=== PATIENT | female | born 1995 | race Caucasian/White ===

== ENCOUNTER 2016-10-08 11:15 | Outpatient (CLI) | payer OTHER ==
[2016-10-11 11:54] LABS: CANDIDA SPECIES Negative (Negative); GARDNERELLA VAGINALIS Positive (Negative)
[2016-10-11 21:41] LABS: C.TRACHOMATIS BY TMA Negative (Negative); N.GONORRHOEAE BY TMA Negative (Negative)
== END 2016-10-08 11:16 | disposition home or self-care (01) ==
LOC: LAB.WCP 11:15
PROVIDERS: ATTEND Family Medicine
DX: N93.9 Abnormal uterine and vaginal bleeding, unspecified (principal)
CPT/HCPCS: 87480; 87491; 87510; 87591; 87660

== ENCOUNTER 2018-09-17 14:04 | Emergency (ER) | payer SELFPAY ==
[2018-09-17 14:13] VITALS: BP 131/75
--- NOTE | 2018-09-17 14:24 | ED Physician Documentation ---
PD HPI OPHTHO - Stated complaint Stated Complaint: LT EYE SWELLING - Chief complaint Chief Complaint: Heent - History obtained from History obtained from: Patient - History of Present Illness Timing - onset: Other (She thinks may be some got stuck in her eye at work 2 days ago. She works as a dental office assisting in dental surgeries. She has had progressive pain and swelling especially of the upper lid. There is no visual deficit and she does not wear contact lenses.) Review of Systems Constitutional: denies: Fever, Chills Cardiac: denies: Chest pain / pressure, Palpitations Respiratory: denies: Dyspnea, Cough PD PAST MEDICAL HISTORY - Past Surgical History Past Surgical History: No - Present Medications Home Medications: Ambulatory Orders Medication Instructions Recorded Confirmed FLUoxetine [PROzac] 10 mg PO DAILY 09/17/18 09/17/18 Polymyxin B/Trimeth Ophth Drop 1 drops EACHEYE Q3H 7 Days #1 09/17/18 [Polytrim Ophth Drops] bottle - Allergies Allergies/Adverse Reactions: Allergies Allergy/AdvReac Type Severity Reaction Status Date / Time No Known Drug Allergies Allergy Verified 09/17/18 14:12 - Social History Does the pt smoke?: No Smoking Status: Never smoker Does the pt drink ETOH?: No Does the pt have substance abuse?: Yes - Immunizations Immunizations are current?: Yes - POLST Patient has POLST: No PD ED PE NORMAL - Vitals Vital signs reviewed: Yes - General General: Alert and oriented X 3, No acute distress - HEENT HEENT: PERRL, EOMI, Other (Modest swelling of the upper eyelid with redness, no flourescen uptake.) - Neck Neck: Supple, no meningeal sign, No bony TTP - Neuro Neuro: Alert and oriented X 3, Normal speech Results - Vitals Vitals: Vital Signs - 24 hr 09/17/18 14:11 Temperature 36.2 C L Heart Rate 56 L Respiratory 18 Rate Blood Pressure 131/75 H O2 Saturation 98 Oxygen O2 Source Room air Departure - Departure Disposition: Home, Self Care Clinical Impression: Blepharitis of eyelid of left eye Qualifiers: Blepharitis type: squamous Eyelid: upper Qualified Code(s): H01.024 - Squamous blepharitis left upper eyelid Condition: Good Record reviewed to determine appropriate education?: Yes Instructions: ED Inflammation Eyelid Follow-Up: Yao Bustillo MD [Provider Admit Priv/Credential] - Within 3 Days Prescriptions: Polymyxin B/Trimeth Ophth Drop [Polytrim Ophth Drops] 1 drops EACHEYE Q3H 7 Days #1 bottle
== END 2018-09-17 14:55 | disposition home or self-care (01) ==
LOC: ED 14:04
DX: H01.024 Squamous blepharitis left upper eyelid (principal)
CPT/HCPCS: 99282; 99283

== ENCOUNTER 2019-04-12 12:21 | Outpatient (CLI) | payer MEDICAID | END 2019-04-12 12:22 | disposition critical access hospital (66) | LOC: EMS 12:21 | PROVIDERS: ATTEND Surgery | DX: R45.851 Suicidal ideations (principal) | CPT/HCPCS: A0425; A0429; A0999 ==

== ENCOUNTER 2019-04-12 12:43 | Emergency (ER) | payer MEDICAID ==
--- NOTE | 2019-04-12 12:55 | ED Physician Documentation ---
PD HPI MHE - Stated complaint Stated Complaint: MHE - History obtained from History obtained from: Patient, EMS - History of Present Illness Primary symptom: Suicidal ideation (24-year-old woman brought in by ambulance for mental health evaluation. She just moved home with her mother and there was some sort of outburst today and she was fighting with her mother and she tried to commit suicide by wrapping rope around her neck. She admits to active suicidal ideation and does not particularly want to help or want to be here. She denies alcohol or substance use. She does have a history of depression, last suicide attempt was about a year ago and last hospitalization she says was At age 17. She is not on any antidepressants.) Review of Systems Ten Systems: 10 systems reviewed and negative Constitutional: denies: Fever, Chills Cardiac: denies: Chest pain / pressure, Palpitations Respiratory: denies: Dyspnea, Cough GI: denies: Abdominal Pain, Nausea, Vomiting PD PAST MEDICAL HISTORY - Past Medical History Past Medical History: Yes Psych: Depression - Past Surgical History Past Surgical History: No - Present Medications Home Medications: Ambulatory Orders Medication Instructions Recorded Confirmed FLUoxetine [PROzac] 10 mg PO DAILY 09/17/18 09/17/18 Polymyxin B/Trimeth Ophth Drop 1 drops EACHEYE Q3H 7 Days #1 09/17/18 [Polytrim Ophth Drops] bottle - Allergies Allergies/Adverse Reactions: Allergies Allergy/AdvReac Type Severity Reaction Status Date / Time No Known Drug Allergies Allergy Verified 09/17/18 14:12 - Social History Does the pt smoke?: No Smoking Status: Never smoker Does the pt drink ETOH?: No Does the pt have substance abuse?: Yes - Family History Family history: reports: Non contributory - Immunizations Immunizations are current?: Yes - POLST Patient has POLST: No PD ED PE NORMAL - Vitals Vital signs reviewed: Yes - General General: Alert and oriented X 3, Other (She is generally uncooperative, preferring to keep her eyes closed and staying under the blankets; Crying a lot.) - HEENT HEENT: PERRL, EOMI - Neck Neck: Supple, no meningeal sign, No bony TTP - Cardiac Cardiac: RRR, No murmur - Respiratory Respiratory: No respiratory distress, Clear bilaterally - Abdomen Abdomen: Soft, Non tender - Back Back: No CVA TTP, No spinal TTP - Derm Derm: Normal color, Warm and dry - Extremities Extremities: No edema, No calf tenderness / cord - Neuro Neuro: Alert and oriented X 3, Normal speech - Psych Psych: Other (Tearful uncooperative and depressed) Results - Vitals Vitals: Vital Signs - 24 hr 04/12/19 13:03 Temperature 37.2 C Heart Rate 91 Respiratory 17 Rate Blood Pressure 109/79 O2 Saturation 97 Oxygen O2 Source Room air - Labs Labs: Laboratory Tests 04/12/19 04/12/19 04/12/19 13:02 13:02 13:02 WBC 8.1 RBC 4.56 Hgb 14.7 Hct 43.3 MCV 95.0 MCH 32.2 H MCHC 33.9 RDW 13.1 Plt Count 253 MPV 9.2 Neut # (Auto) 5.3 Lymph # (Auto) 1.9 Henry # (Auto) 0.8 Eos # (Auto) 0.1 Baso # (Auto) 0.1 Absolute Nucleated RBC 0.00 Nucleated RBC % 0.0 Sodium 140 Potassium 3.7 Chloride 103 Carbon Dioxide 21 Anion Gap 16.0 H BUN 12 Creatinine 0.9 Estimated GFR (MDRD) 78 L Glucose 86 Calcium 9.6 Total Bilirubin 0.6 AST 19 ALT 11 Alkaline Phosphatase 52 Total Protein 7.7 Albumin 4.7 Globulin 3.0 Albumin/Globulin Ratio 1.6 Lipase 22 TSH 1.97 Urine Color Urine Clarity Urine pH Ur Specific [place] Urine Protein Urine Glucose (UA) Urine Ketones Urine Occult Blood Urine Nitrite Urine Bilirubin Urine Urobilinogen Ur Leukocyte Esterase Urine RBC Urine WBC Ur Squamous Epith Cells Urine Bacteria Urine Casts Ur Microscopic Review Urine Culture Comments Urine HCG, Qual Salicylates < 6.0 Urine Opiates Screen Ur Oxycodone Screen Urine Methadone Screen Ur Propoxyphene Screen Acetaminophen < 10 L Ur Barbiturates Screen Ur Tricyclics Screen Ur Phencyclidine Scrn Ur Amphetamine Screen U Methamphetamines Scrn U Benzodiazepines Scrn Urine Cocaine Screen U Cannabinoids Screen Ethyl Alcohol < 5.0 04/12/19 04/12/19 13:07 13:07 WBC RBC Hgb Hct MCV MCH MCHC RDW Plt Count MPV Neut # (Auto) Lymph # (Auto) Henry # (Auto) Eos # (Auto) Baso # (Auto) Absolute Nucleated RBC Nucleated RBC % Sodium Potassium Chloride Carbon Dioxide Anion Gap BUN Creatinine Estimated GFR (MDRD) Glucose Calcium Total Bilirubin AST ALT Alkaline Phosphatase Total Protein Albumin Globulin Albumin/Globulin Ratio Lipase TSH Urine Color YELLOW Urine Clarity SL Urine pH 6.0 Ur Specific [place] >=1.030 H Urine Protein 100 H Urine Glucose (UA) NEGATIVE Urine Ketones TRACE Urine Occult Blood LARGE H Urine Nitrite NEGATIVE Urine Bilirubin NEGATIVE Urine Urobilinogen 0.2 (NORMAL) Ur Leukocyte Esterase NEGATIVE Urine RBC 11-25 H Urine WBC 0-3 Ur Squamous Epith Cells RARE Squamous Urine Bacteria Few Urine Casts 3-5 Hyaline Casts Ur Microscopic Review INDICATED Urine Culture Comments NOT INDICATED Urine HCG, Qual NEGATIVE Salicylates Urine Opiates Screen NEGATIVE Ur Oxycodone Screen NEGATIVE Urine Methadone Screen NEGATIVE Ur Propoxyphene Screen NEGATIVE Acetaminophen Ur Barbiturates Screen NEGATIVE Ur Tricyclics Screen NEGATIVE Ur Phencyclidine Scrn NEGATIVE Ur Amphetamine Screen NEGATIVE U Methamphetamines Scrn NEGATIVE U Benzodiazepines Scrn NEGATIVE Urine Cocaine Screen NEGATIVE U Cannabinoids Screen POSITIVE H Ethyl Alcohol PD MEDICAL DECISION MAKING - ED course ED course: 24-year-old woman presents for suicidal ideation and what seems like a gesture at home. Initially she did not want help but then talked to the manager social media and did want help but then kind of freaked out and had an episode where she required brief physical and chemical restraint. Subsequent to that was evaluated by the DCR who formulated a plan for discharge. The patient contracted for safety. Her major stressor revolves around her mother and recent return to living with her mother and she will not go back there. She understands she can return anytime if worse and she was also given new referrals for new counselors by the DCR. Departure - Departure Disposition: 01 Home, Self Care Clinical Impression: Depressive disorder, Posttraumatic stress disorder Condition: Good Record reviewed to determine appropriate education?: Yes Instructions: ED Depression Comments: Follow the instructions of the manager social media regarding follow-up. She recommended you do not go back with your mother. Return anytime if worse.
[2019-04-12 13:10] VITALS: BP 109/79
[2019-04-12 13:10] LABS: BASOPHILS # (AUTO) 0.1 10^3/uL (0.0-0.1); BASOPHILS % (AUTO) 0.6 %; EOSINOPHILS # (AUTO) 0.1 10^3/uL (0.0-0.7); HGB - HEMOGLOBIN 14.7 g/dL (12.0-16.0); LYMPHOCYTES # (AUTO) 1.9 10^3/uL (1.5-3.5); LYMPHOCYTES % (AUTO) 23.2 %; MEAN CORPUSCULAR HEMOGLOBIN 32.2 pg (27.0-31.0); MEAN CORPUSCULAR HGB CONC 33.9 g/dL (32.0-36.0); MEAN PLATELET VOLUME 9.2 fL (7.9-10.8); MONOCYTES # (AUTO) 0.8 10^3/uL (0.0-1.0); MONOCYTES % (AUTO) 9.4 %; NEUTROPHILS # (AUTO) 5.3 10^3/uL (1.5-6.6); NEUTROPHILS % (AUTO) 65.4 %; PLT - PLATELET COUNT 253 10^3/uL (130-450); RED BLOOD COUNT 4.56 10^6/uL (4.20-5.40); RED CELL DISTRIBUTION WIDTH 13.1 % (12.0-15.0); WHITE BLOOD COUNT 8.1 x10^3/uL (4.8-10.8)
[2019-04-12 13:15] LABS: MUDS CUTOFF CONCENTRATIONS CUTOFF CONC BELOW:
[2019-04-12 13:21] LABS: BILIRUBIN,URINE NEGATIVE (NEGATIVE); GLUCOSE, URINE (UA) NEGATIVE (NEGATIVE); KETONES,URINE (UA) TRACE mg/dL (NEGATIVE); LEUKOCYTE ESTERASE, URINE NEGATIVE (NEGATIVE); NITRITE,URINE NEGATIVE (NEGATIVE); OCCULT BLOOD,URINE LARGE (NEGATIVE); PROTEIN,URINE 100 mg/dL (NEGATIVE); UROBILINOGEN,URINE 0.2 (NORMAL) E.U./dL (NORMAL)
[2019-04-12 13:22] LABS: CLARITY,URINE SL (CLEAR); HCG UR QUAL NEGATIVE
[2019-04-12 13:28] LABS: ACETAMINOPHEN < 10 ug/mL (10-30); ALBUMIN 4.7 g/dL (3.2-5.5); ALBUMIN/GLOBULIN RATIO 1.6 (1.0-2.2); ALKALINE PHOSPHATASE 52 IU/L (42-121); ALT ALANINE AMINOTRANSFERASE 11 IU/L (10-60); AST ASPARTATE AMINOTRANSFERASE 19 IU/L (10-42); BILIRUBIN,TOTAL 0.6 mg/dL (0.2-1.0); BUN - BLOOD UREA NITROGEN 12 mg/dL (6-20); CALCIUM 9.6 mg/dL (8.5-10.3); CARBON DIOXIDE - CO2 21 mmol/L (21-32); CHLORIDE 103 mmol/L (101-111); CREATININE 0.9 mg/dL (0.4-1.0); GFR - MDRD 78 (>89); GLUCOSE 86 mg/dL (70-100); LIPASE 22 U/L (22-51); SALICYLATE < 6.0 mg/dL; SODIUM 140 mmol/L (135-145); TOTAL PROTEIN 7.7 g/dL (6.7-8.2)
[2019-04-12 13:29] LABS: AMPHETAMINE SCREEN,URINE NEGATIVE (NEGATIVE); BENZODIAZEPINES SCREEN, URINE NEGATIVE (NEGATIVE); COCAINE SCREEN URINE NEGATIVE (NEGATIVE); METHADONE SCREEN, URINE NEGATIVE (NEGATIVE); METHAMPHETAMINES SCREEN, URINE NEGATIVE (NEGATIVE); OPIATE SCREEN, URINE NEGATIVE (NEGATIVE); OXYCODONE SCREEN, URINE NEGATIVE (NEGATIVE); PROPOXYPHENE SCREEN, URINE NEGATIVE (NEGATIVE); TRICYCLIC ANTIDEPRESSANT,URINE NEGATIVE (NEGATIVE)
[2019-04-12 13:36] LABS: BACTERIA,URINE Few /HPF (None Seen); SQUAMOUS EPITHELIAL CELL,UR RARE Squamous (<= Few)
[2019-04-12 13:37] LABS: CASTS, URINE 3-5 Hyaline Casts /LPF
[2019-04-12] MEDS ORDERED: OLANZapine 10 MG VIAL IM STA (15:30)
[2019-04-12] MEDS ORDERED: LORazepam 2 MG/ML VIAL IM STA (15:30)
[2019-04-12] MEDS ORDERED: WATER FOR INJECTION,STERILE 10 ML ONE (15:41)
[2019-04-12] MEDS ORDERED: LORazepam 2 MG/ML VIAL ONE (15:41)
[2019-04-12] MEDS ORDERED: OLANZapine 10 MG VIAL IM ONE (15:41)
== END 2019-04-12 21:34 | disposition home or self-care (01) ==
LOC: EDUNIT# → ED 12:43 → EEVIPCON 12:43 → ED 21:34
DX: F32.9 Major depressive disorder, single episode, unspecified (principal); F43.10 Post-traumatic stress disorder, unspecified; Z78.1 Physical restraint status
CPT/HCPCS: 36415; 80053; 80306; 80307; 80320; 80329; 81001; 81025; 83690; 84443; 85025; 96372; 99283; 99284; J2060; 81003; 87086

== ENCOUNTER 2019-11-01 10:17 | Outpatient (CLI) | payer MEDICAID ==
[2019-11-01 22:24] LABS: TRICHOMONAS VAGINALIS DNA NEGATIVE (NEGATIVE)
== END 2019-11-01 23:59 | disposition home or self-care (01) ==
LOC: LAB.WCP 10:17
PROVIDERS: ATTEND Family Medicine
DX: Z11.3 Encounter for screening for infections with a predominantly sexual mode of transmission (principal)
CPT/HCPCS: 87491; 87591; 87661

== ENCOUNTER 2019-11-02 11:31 | Outpatient (CLI) | payer MEDICAID ==
[2019-11-02 19:26] LABS: BASOPHILS % (AUTO) 0.7 %; EOSINOPHILS # (AUTO) 0.1 10^3/uL (0.0-0.7); EOSINOPHILS % (AUTO) 1.8 %; HGB - HEMOGLOBIN 15.2 g/dL (12.0-16.0); LYMPHOCYTES # (AUTO) 1.8 10^3/uL (1.5-3.5); LYMPHOCYTES % (AUTO) 32.3 %; MEAN CORPUSCULAR HEMOGLOBIN 31.7 pg (27.0-31.0); MEAN CORPUSCULAR HGB CONC 33.6 g/dL (32.0-36.0); MEAN CORPUSCULAR VOLUME 94.2 fL (81.0-99.0); MEAN PLATELET VOLUME 9.6 fL (7.9-10.8); MONOCYTES # (AUTO) 0.7 10^3/uL (0.0-1.0); MONOCYTES % (AUTO) 11.9 %; NEUTROPHILS # (AUTO) 2.9 10^3/uL (1.5-6.6); NEUTROPHILS % (AUTO) 52.9 %; PLT - PLATELET COUNT 248 10^3/uL (130-450); WHITE BLOOD COUNT 5.5 x10^3/uL (4.8-10.8)
[2019-11-02 19:47] LABS: ALBUMIN 4.5 g/dL (3.2-5.5); ALBUMIN/GLOBULIN RATIO 1.6 (1.0-2.2); BILIRUBIN,TOTAL 0.8 mg/dL (0.2-1.0); CALCIUM 9.2 mg/dL (8.5-10.3); CREATININE 0.8 mg/dL (0.4-1.0); TOTAL PROTEIN 7.3 g/dL (6.7-8.2)
== END 2019-11-02 23:59 | disposition home or self-care (01) ==
LOC: LAB.WCP 11:31
PROVIDERS: ATTEND Family Medicine
DX: Z00.00 Encounter for general adult medical examination without abnormal findings (principal)
CPT/HCPCS: 36415; 80053; 84443; 85025

== ENCOUNTER 2020-08-27 13:24 | Outpatient (CLI) | payer MEDICAID | END 2020-08-27 13:25 | disposition home or self-care (01) | LOC: COV 13:24 | PROVIDERS: ATTEND Family Medicine | DX: R50.9 Fever, unspecified (principal); Z20.828 Contact with and (suspected) exposure to other viral communicable diseases; R05 Cough; R06.02 Shortness of breath; M79.10 Myalgia, unspecified site; R53.83 Other fatigue; J02.9 Acute pharyngitis, unspecified; R43.9 Unspecified disturbances of smell and taste; R09.81 Nasal congestion ==

== ENCOUNTER 2020-11-24 16:27 | Emergency (ER) | payer MEDICAID ==
[2020-11-24 16:36] VITALS: BP 123/83
[2020-11-24] MEDS ORDERED: TETANUS/DIPHTHERIA/PERTUSSIS 0.5 ML SYRINGE IM ONE (16:58)
--- NOTE | 2020-11-24 17:00 | ED Physician Documentation ---
PD HPI UPPER EXT INJURY - Stated complaint Stated Complaint: BACK LACERATIONS - Chief complaint Chief Complaint: Laceration - History obtained from History obtained from: Patient - History of Present Illness Where injury occurred: Street Timing - onset: Today Associated symptoms: Swelling, Discolored. No: Weakness, Numbness - Additonal information Additional information: 25-year-old woman with unknown tetanus status was attacked by 2 falling eagles and she has multiple scratches and scrapes, especially both hands and the left knee. No other injuries. Review of Systems Constitutional: reports: Reviewed and negative Nose: reports: Reviewed and negative Throat: reports: Reviewed and negative Cardiac: reports: Reviewed and negative PD PAST MEDICAL HISTORY - Past Medical History Psych: Depression - Past Surgical History Past Surgical History: No - Present Medications Home Medications: Ambulatory Orders Medication Instructions Recorded Confirmed FLUoxetine [PROzac] 20 mg PO DAILY 09/17/18 11/24/20 - Allergies Allergies/Adverse Reactions: Allergies Allergy/AdvReac Type Severity Reaction Status Date / Time No Known Drug Allergies Allergy Verified 11/24/20 16:32 - Social History Does the pt smoke?: No Smoking Status: Never smoker Does the pt drink ETOH?: No Does the pt have substance abuse?: Yes - Immunizations Immunizations are current?: Yes - POLST Patient has POLST: No PD ED PE NORMAL - Vitals Vital signs reviewed: Yes - General General: Alert and oriented X 3, No acute distress - Extremities Extremities: Other (scrapes dorsum of both hands and B knees. This over all the metacarpals of both hands and left knee. She is able to walk and bear weight.) - Neuro Neuro: Alert and oriented X 3, Normal speech Results - Vitals Vitals: Vital Signs - 24 hr 11/24/20 16:33 Temperature 37.1 C Heart Rate 55 L Respiratory 16 Rate Blood Pressure 123/83 H O2 Saturation 99 Oxygen O2 Source Room air Departure - Departure Disposition: Home, Self Care Clinical Impression: Multiple abrasions Condition: Good Record reviewed to determine appropriate education?: Yes Instructions: ED Abrasion Comments: You can wash the wounds with soap and water and then just keep them covered with a Band-Aid and bacitracin ointment which is available [id number]. Return for new or worsening symptoms or signs of infection including not limited to redness, swelling, drainage, increased pain, fever. Discharge Date/Time: 11/24/20 18:12
--- NOTE | 2020-11-24 17:52 | XRAY Report ---
PROCEDURE: Knee 4 View LT INDICATIONS: knee inj TECHNIQUE: 4 views of the left knee(s) were acquired. COMPARISON: None. FINDINGS: Bones: No fractures or dislocations. No suspicious bony lesions. Soft tissues: No joint effusion. No suspicious soft tissue calcifications. IMPRESSION: Normal left knee. Reviewed by: Cyndi Regan MD on 11/24/2020 5:50 PM PDT Approved by: Cyndi Regan MD on 11/24/2020 5:50 PM PDT Station ID: [id number]
--- NOTE | 2020-11-24 17:59 | XRAY Report ---
PROCEDURE: Hand 3 View BILAT INDICATIONS: hand inj TECHNIQUE: 3 views of the hand(s) acquired. COMPARISON: None. FINDINGS: Left: No fractures or dislocations. No suspicious bony lesions. Right: No fractures. There is posterior tilt the distal ulna. IMPRESSION: 1. Posterior tilt of right left ulna. The finding may be secondary to disruption of distal radial uln ar joint (DRUJ). Recommend correlation with focal pain and tenderness. 2. No acute osseous amenities of the hand. Reviewed by: Corey Greenwood MD on 11/24/2020 4:57 PM MARILYN Approved by: Corey Greenwood MD on 11/24/2020 4:57 PM AKMARITA Station ID: [id number]
== END 2020-11-24 18:12 | disposition home or self-care (01) ==
LOC: ED 16:27
DX: S60.512A Abrasion of left hand, initial encounter (principal); S60.511A Abrasion of right hand, initial encounter; S80.212A Abrasion, left knee, initial encounter; W61.92XA Struck by other birds, initial encounter; Y92.488 Other paved roadways as the place of occurrence of the external cause; Z23 Encounter for immunization
CPT/HCPCS: 90471; 99282; 99284